=== PATIENT | male | born 1995 | race Caucasian/White ===

== ENCOUNTER 2021-08-26 05:49 | Emergency (ER) | payer OTHER ==
[2021-08-26] MEDS ORDERED: IBUPROFEN 600 MG TABLET (FP) PO ONE (06:26)
[2021-08-26] MEDS ORDERED: LIDOCAINE 5% TOPICAL PATCH TP ONE (06:27)
[2021-08-26] MEDS ORDERED: ACETAMINOPHEN 500 MG TABLET (FP) PO ONE (06:28)
[2021-08-26 06:32] VITALS: BMI 29.2
[2021-08-26] MEDS ORDERED: LIDOCAINE 5% TOPICAL PATCH ONE (06:33)
[2021-08-26] MEDS ORDERED: ACETAMINOPHEN 325 MG TABLET (FP) ONE (06:33)
[2021-08-26 10:34] VITALS: BP 125/81; PULSE 82; TEMP 97.8
[2021-08-26] MEDS ORDERED: LIDOCAINE PATCH REMOVAL MC SCH (22:00)
== END 2021-08-26 10:42 | disposition home or self-care (01) ==
LOC: JER 05:49
DX: R51.9 Headache, unspecified (principal); M54.50 Low back pain, unspecified; V49.40XA Driver injured in collision with unspecified motor vehicles in traffic accident, initial encounter
CPT/HCPCS: 70450-TC; 73110-TC-LT-FY; 73130-TC-LT-FY; 99284-25

== ENCOUNTER 2025-01-02 21:26 | Emergency (ER) | payer OTHER ==
[2025-01-02 21:38] VITALS: BP 119/73; PULSE 65; RESP 17; TEMP 98.6; BMI 33.5
[2025-01-03] MEDS: predniSONE 20 MG TABLET (UD) PO ONE (01:30)
[2025-01-03] MEDS: CEPHALEXIN MONOHYDRATE 500 MG CAPSULE (UD) PO ONE (01:30)
[2025-01-03] MEDS ORDERED: CEPHALEXIN MONOHYDRATE 500 MG CAPSULE (UD) ONE (01:32)
[2025-01-03] MEDS ORDERED: predniSONE 20 MG TABLET (UD) ONE (01:33)
== END 2025-01-03 01:45 | disposition home or self-care (01) ==
LOC: JERFT 21:26 → JER 21:26
DX: L23.7 Allergic contact dermatitis due to plants, except food (principal); R11.0 Nausea; R50.9 Fever, unspecified
CPT/HCPCS: 99283-25